=== PATIENT | female | born 1995 | race Two or more races ===

== ENCOUNTER → 2019-01-26 | Emergency (ER) | payer OTHER ==
[~2019-01-26] VITALS: Ht 160 cm; Wt 66.2 kg
[~2019-01-26] MED LIST: KETO10TA2 PO
== END | disposition home or self-care (01) ==
LOC: ER 23:38
DX: O20.0 Threatened abortion (principal)

== ENCOUNTER 2019-01-28 21:30 | Emergency (ER) | payer OTHER ==
[~2019-01-28] VITALS: Ht 160 cm; Wt 67.6 kg
[2019-01-29] MEDS ORDERED: KETO10TA2 PO (05:29)
== END 2019-01-29 05:34 | disposition home or self-care (01) ==
LOC: ER 21:30
DX: O20.0 Threatened abortion (principal)

== ENCOUNTER 2019-02-05 09:42 | Emergency (ER) | payer OTHER ==
[~2019-02-05] VITALS: Ht 160 cm; Wt 67.6 kg
== END 2019-02-05 15:59 | disposition home or self-care (01) ==
LOC: ER 09:42
DX: O20.0 Threatened abortion (principal); O26.891 Other specified pregnancy related conditions, first trimester; R10.2 Pelvic and perineal pain; Z34.01 Encounter for supervision of normal first pregnancy, first trimester

== ENCOUNTER 2021-01-24 20:18 | Emergency (ER) | payer OTHER ==
[~2021-01-24] VITALS: Ht 160 cm; Wt 72.1 kg
[2021-01-24] MEDS ORDERED: PRENATABS RX T1 EACH PO (20:28)
== END 2021-01-25 01:46 | disposition home or self-care (01) ==
LOC: ER 20:18 → EDBD 21:12 → ER 21:12
DX: O26.892 Other specified pregnancy related conditions, second trimester (principal); E86.0 Dehydration; Z34.02 Encounter for supervision of normal first pregnancy, second trimester

== ENCOUNTER 2021-06-09 14:45 | Inpatient (IN) | payer OTHER ==
[~2021-06-09] VITALS: Ht 160 cm; Wt 77.6 kg
[~2021-06-09 14:45] MED LIST changes: +PRENATABS RX T1 EACH PO
== END 2021-06-26 19:03 | disposition home or self-care (01) | DRG 807 ==
LOC: LDR 06-24 12:19 → PED 06-25 14:18 → LDR 06-25 14:47 → PED 06-25 14:49
PROVIDERS: ADMIT Obstetrics & Gynecology; ATTEND Obstetrics & Gynecology
PROC: 10E0XZZ Delivery of Products of Conception, External Approach (ICD-10-PCS; principal; 2021-06-24)
PROC: 0HQ9XZZ Repair Perineum Skin, External Approach (ICD-10-PCS; 2021-06-24)
PROC: 10907ZC Drainage of Amniotic Fluid, Therapeutic from Products of Conception, Via Natural or Artificial Opening (ICD-10-PCS; 2021-06-24)
PROC: 3E033VJ Introduction of Other Hormone into Peripheral Vein, Percutaneous Approach (ICD-10-PCS; 2021-06-24)
PROC: 4A1HXFZ Monitoring of Products of Conception, Cardiac Rhythm, External Approach (ICD-10-PCS; 2021-06-24)
DX: O70.0 First degree perineal laceration during delivery (principal); Z37.0 Single live birth; O99.824 Streptococcus B carrier state complicating childbirth; Z3A.40 40 weeks gestation of pregnancy